=== PATIENT | male | born 1995 | race African-American/Black ===

== ENCOUNTER 2016-05-05 03:03 | Emergency (ER) | payer OTHER ==
[2016-05-05 03:22] VITALS: BP 157/94; PULSE 110; TEMP 100.6; BMI 38.0
--- NOTE | 2016-05-05 04:17 | PDOC ---
History of Present Illness - General Chief Complaint: Toothache Stated Complaint: MOUTH PAIN Time Seen by Provider: 05/05/16 03:24 - History of Present Illness Initial Comments: 05/05/16 04:07 CHIEF COMPLAINT: tooth abscess HISTORY OF PRESENT ILLNESS: 20 yo M with hx of asthma presents with tooth abscess and pain x 2 days. Patient states he was going to see his dentist yesterday but it was closed. He was going to follow up and go today but his mother told him to come to the ED. Patient denies fever or chills at home, and denies any nausea, vomiting, diarrhea. No recent travel or sick contacts. PAST MEDICAL HISTORY: Denies past medical history SOCIAL HISTORY:Denies tobacco, alcohol, illicit drug use. SURGICAL HISTORY: Denies ALLERGIES: No known drug allergies REVIEW OF SYSTEMS General/Constitutional: Denies fever or chills. HEENT: Tooth pain. Gastrointestinal: Denies nausea, vomiting, diarrhea. Skin and breasts: Denies rash or easy bruising. Neurologic: Denies headache, vertigo, loss of consciousness, or loss of sensation. PHYSICAL EXAM General Appearance: Febrile to 100.6F. Well-appearing, appropriately dressed. No apparent distress. HEENT: Large abscess to upper left second molar. Swollen left cheek secondary to abscess formation. No erythema, warmth. EOMI, PERRLA, normal ENT inspection , normal voice, TMs normal, pharynx normal. No conjunctival pallor. No photophobia, scleral icterus. Neck: Supple. Trachea midline. No tenderness, rigidity, carotid bruit, stridor , lymphadenopathy, or thyromegaly. Respiratory/Chest: Lungs CTAB. Cardiovascular: RRR. S1, S2. Integumentary: Appropriate color, dry, warm. No cyanosis, erythema, jaundice or rash Timing/Duration: unsure Past History - Past Medical History Allergies/Adverse Reactions: Allergies Allergy/AdvReac Type Severity Reaction Status Date / Time shellfish derived Allergy Verified 05/05/16 03:18 Home Medications: Ambulatory Orders Albuterol Sulfate [Proair Hfa -] 1 - 2 inh PO TID PRN #1 hfa.aer.ad 04/28/14 Clindamycin [Cleocin -] 300 mg PO QID #28 capsule 05/05/16 Ibuprofen 800 mg PO TID PRN #12 tablet 05/05/16 Asthma: Yes (chronic) - Immunization History Immunization Up to Date: No - Psycho/Social/Smoking Cessation Hx Anxiety: No Suicidal Ideation: No Smoking History: Never smoked Have you smoked in the past 12 months: No Hx Alcohol Use: No Substance Use Type: None *Physical Exam - Vital Signs Last Vital Signs Temp Pulse Resp BP Pulse Ox 100.6 F H 110 H 18 157/94 97 05/05/16 03:19 05/05/16 03:19 05/05/16 03:19 05/05/16 03:19 05/05/16 03:19 Medical Decision Making - Medical Decision Making 05/05/16 04:30 20 yo M with PMH of asthma presents to ED with tooth pain secondary to abscess. -Patient febrile, will give Motrin 800 mg po -300 mg Clindamycin po Rx for clindamycin sent to pharm. Patient states he is going to dentist today to have abscess drained. Advised patient to follow up as planned and of signs and symptoms for return to ED. Patient verbalized understanding and agrees to plan. 05/05/16 04:33 *DC/Admit/Observation/Transfer Diagnosis at time of Disposition: Tooth abscess - Discharge Dispostion Disposition: HOME Condition at time of disposition: Stable Admit: No - Prescriptions Prescriptions: Clindamycin [Cleocin -] 300 mg PO QID #28 capsule Ibuprofen 800 mg PO TID PRN #12 tablet PRN Reason: Fever - Patient Instructions Printed Discharge Instructions: DI for Tooth Abscess Additional Instructions: Please take medications as prescribed. As discussed, please follow up with a dentist today. If you experience chills, nausea, vomiting, diarrhea, or fever that does not subside with medication, please return to ED.
[2016-05-05] MEDS ORDERED: IBUPROFEN 400 MG TABLET (FP) PO ONE ×2 (04:21→04:28)
[2016-05-05] MEDS ORDERED: CLINDAMYCIN HCL 150 MG CAPSULE (FP) ONE (04:28)
== END 2016-05-05 04:32 | disposition home or self-care (01) ==
LOC: JER 03:03
DX: K04.7 Periapical abscess without sinus (principal)
CPT/HCPCS: 99281-25

== ENCOUNTER 2017-01-16 21:26 | Emergency (ER) | payer OTHER ==
[2017-01-16 21:44] VITALS: BP 159/67; PULSE 107; TEMP 101.6; BMI 39.3
[2017-01-16 22:37] LABS: URINE APPEARANCE CLEAR; URINE BILIRUBIN NEGATIVE (NEGATIVE); URINE BLOOD NEGATIVE (NEGATIVE); URINE COLOR YELLOW; URINE GLUCOSE (UA) NEGATIVE (NEGATIVE); URINE KETONE NEGATIVE (NEGATIVE); URINE NITRITE NEGATIVE (NEGATIVE); URINE PROTEIN NEGATIVE (NEGATIVE); URINE UROBILINOGEN NEGATIVE mg/dL (0.2-1.0)
--- NOTE | 2017-01-16 22:49 | PDOC ---
History of Present Illness - General Chief Complaint: Nausea Stated Complaint: FEVER Time Seen by Provider: 01/16/17 22:48 History Source: Patient Exam Limitations: No Limitations - History of Present Illness Travel History: No Initial Comments: 01/16/17 23:22 21y F no pmhx presents wiht complaint of fever, nausea. Pt endorses having some coughing/sorethroat, nasal congestion, headache earlier today, but that has largely resolved. Pt notes that when he was eating dinner tongiht, he felt nauseus. He denies any vomting, abdominal pain, diarrhea, dysuria. pt states he feels better now. no recent travel no sick contents. Past History - Past Medical History Allergies/Adverse Reactions: Allergies Allergy/AdvReac Type Severity Reaction Status Date / Time shellfish derived Allergy Verified 01/16/17 21:44 Home Medications: Ambulatory Orders Albuterol Sulfate [Proair Hfa -] 1 - 2 inh PO TID PRN #1 hfa.aer.ad 04/28/14 Acetaminophen [Tylenol] 500 mg PO PRN PRN 01/16/17 Asthma: Yes (chronic) - Immunization History Immunization Up to Date: No - Suicide/Smoking/Psychosocial Hx Smoking History: Never smoked Have you smoked in the past 12 months: No Information on smoking cessation initiated: No Hx Alcohol Use: No Drug/Substance Use Hx: No Substance Use Type: None Review of Systems - Review of Systems Able to Perform ROS?: Yes Comments:: 01/16/17 23:24 Constitutional - + Fever, no reported Chills, HEENT: +nasal congestion no reported vision changes, sore throat Respiratory: +cough, no reported sob, hemoptysis Cardiac: no reported chest pain, palpitations, light headedness, leg swelling Abd/GI: +nausea, no reported abd pain, vomiting, blood per rectum, melena, diarrhea : no reported dysuria, frequency, discharge Musculskelatal - no reported back pain, joint swelling skin - no reported bruising, erythema, rash neurological: + headache, no reported numbness, focal weakness, tingling, ataxia , hematologic: no reported anemia, easy bruising, easy bleeding *Physical Exam - Vital Signs Last Vital Signs Temp Pulse Resp BP Pulse Ox 101.6 F H 107 H 18 159/67 99 01/16/17 21:39 01/16/17 21:39 01/16/17 21:39 01/16/17 21:39 01/16/17 21:39 - Physical Exam Comments: 01/16/17 23:26 GENERAL: The patient is awake, alert, and fully oriented, Nontoxic - in no acute distress. HEAD: Normocephalic, atraumatic. EYES: extraocular movements intact, sclera anicteric, conjunctiva clear. ENT: Normal voice, Moist mucous membranes. NECK: Normal range of motion, supple LUNGS: Breath sounds equal, clear to auscultation bilaterally. No wheezes, no rhonchi, no rales. HEART: Regular rate and rhythm, normal S1 and S2 without murmur, rub or gallop. ABDOMEN: Soft, nontender, normoactive bowel sounds. No guarding, no rebound. . No CVA tenderness EXTREMITIES: Normal range of motion, no edema. No clubbing or cyanosis. No cords, erythema, or tenderness. NEUROLOGICAL: No facial assymetry, Normal speech, PSYCH: Normal mood, normal affect. SKIN: hot to touch, Dry, normal turgor, ED Treatment Course - ADDITIONAL ORDERS Additional order review: Laboratory Results 01/16/17 22:30 Urine Color Yellow Urine Appearance Clear Urine pH 7.0 Urine Protein Negative Urine Glucose (UA) Negative Urine Ketones Negative Urine Blood Negative Urine Nitrite Negative Urine Bilirubin Negative Urine Urobilinogen Negative Medical Decision Making - Medical Decision Making 01/16/17 23:27 possible influenza will give tylenol will ck flu swab will Po challenge 01/17/17 00:56 +flu will give tamiflu will have pt fu with pmd supportive mgmt at home return precautions were discussed I discussed the physical exam findings, ancillary test results and final diagnoses with the patient. I answered all of the patient's questions. The patient was satisfied with the care received and felt comfortable with the discharge plan and treatment plan. The patient will call their primary care physician within 24 hours to arrange follow-up and will return to the Emergency Department with any new, persistent or worsening symptoms. *DC/Admit/Observation/Transfer Diagnosis at time of Disposition: Influenza due to influenza virus, type A, human - Discharge Dispostion Disposition: HOME Condition at time of disposition: Improved Admit: No - Referrals Referrals: Nasima Lange MD [Staff Physician] - - Patient Instructions Printed Discharge Instructions: DI for Influenza -- Adult Additional Instructions: Return to the emergency department immediately with ANY new, persistent or worsening symptoms. Take tylenol or motrin for your fever. Drink plenty of fluids. You MUST call and follow up with your doctor tomorrow for further evaluation of your symptoms. Results were discussed with you. Please make sure your doctor reviews the results of your emergency evaluation. Print Language: [id number]
[2017-01-16] MEDS ORDERED: ACETAMINOPHEN 325 MG TABLET (FP) ONE (23:18)
[2017-01-16] MEDS ORDERED: ACETAMINOPHEN 325 MG TABLET (FP) PO ONE (23:24)
[2017-01-17] MEDS ORDERED: OSELTAMIVIR PHOSPHATE 75 MG CAPSULE PO ONE (00:56)
[2017-01-17] MEDS ORDERED: OSELTAMIVIR PHOSPHATE 75 MG CAPSULE ONE (00:57)
[2017-01-17 11:47] LABS: URINE LEUK ESTERASE TRACE (NEGATIVE)
== END 2017-01-17 00:59 | disposition home or self-care (01) ==
LOC: JER 21:26
DX: J10.1 Influenza due to other identified influenza virus with other respiratory manifestations (principal); Z91.013 Allergy to seafood
CPT/HCPCS: 81003; 81015; 87804; 99281-25

== ENCOUNTER 2022-06-01 15:48 | Emergency (ER) | payer OTHER ==
[2022-06-01 15:52] VITALS: TEMP 98.4; BMI 46.7
[2022-06-01] MEDS ORDERED: SODIUM CHLORIDE 0.9% 500 ML INFUS.BAG IV ONE (17:36)
[2022-06-01] MEDS ORDERED: ALBUTEROL SO4 2.5/IPRATROPIUM 0.5 INH SOL 3 ML VIAL.NEB. NEB ONE ×2 (17:36→17:39)
[2022-06-01] MEDS ORDERED: FAMOTIDINE 20 MG/50 ML IVPB 20 MG/50 ML MG IVPB ONE ×2 (17:36→17:39)
[2022-06-01 18:16] LABS: BASO % 0.2 % (0-2.0); HEMATOCRIT 43.1 % (35.4-49); HEMOGLOBIN 14.4 GM/dL (11.7-16.9); LYMPH % 5.7 % (8-40); MCH 27.9 pg (25.7-33.7); MCHC 33.3 g/dl (32.0-35.9); MEAN CELL VOLUME 83.8 fl (80-96); MONO % 7.6 % (3.8-10.2); NEUT % 86.5 % (42.8-82.8); PLATELET COUNT 258 10^3/uL (134-434); RBC 5.15 M/mm3 (4.00-5.60); RDW 13.6 % (11.9-15.9); WHITE BLOOD COUNT 7.2 K/mm3 (4.0-10.0)
[2022-06-01 18:17] LABS: BLOOD UREA NITROGEN 13.8 mg/dL (7-18)
[2022-06-01 18:18] LABS: ALBUMIN 4.1 g/dl (3.4-5.0)
[2022-06-01 18:22] LABS: BILIRUBIN,TOTAL 0.9 mg/dL (0.2-1); TOT PROT 7.7 g/dl (6.4-8.2)
[2022-06-01] MEDS ORDERED: KETOROLAC TROMETHAMINE 30 MG/1 ML VIAL IVPUSH ONE (18:47)
[2022-06-01] MEDS ORDERED: KETOROLAC TROMETHAMINE 30 MG/1 ML VIAL ONE (19:14)
[2022-06-01 20:34] VITALS: BP 135/86; PULSE 101; RESP 16
== END 2022-06-01 20:35 | disposition home or self-care (01) ==
LOC: JER 15:48
PROC: 3E033GC Introduction of Other Therapeutic Substance into Peripheral Vein, Percutaneous Approach (ICD-10-PCS; principal; 2022-06-01)
PROC: 3E0F7GC Introduction of Other Therapeutic Substance into Respiratory Tract, Via Natural or Artificial Opening (ICD-10-PCS; 2022-06-01)
DX: R07.9 Chest pain, unspecified (principal); R19.7 Diarrhea, unspecified; R11.2 Nausea with vomiting, unspecified
CPT/HCPCS: 36415; 71046-TC-FY; 80053; 84484; 85025; 93005; 93010; 99285-25